=== PATIENT | female | born 1980 | race Caucasian/White ===

== ENCOUNTER 2019-08-08 19:43 | Emergency (ER) | payer OTHER ==
[2019-08-08 22:43] LABS: Hematocrit 36 % (35-47); Hemoglobin 11.7 g/dL (12.0-16.0); Mean Corpuscular HGB Conc 32 g/dL (31-36); Mean Corpuscular Hemoglobin 24 pg (27-31); Mean Corpuscular Volume 76 fL (80-97); Mean Platelet Volume 7.3 fL (7.4-10.4); Platelet Count 379 10^3/uL (150-450); Red Cell Distribution Width 18 % (10-15); White Blood Count 10.9 10^3/uL (3.5-10.8)
[2019-08-08 22:53] LABS: ABS Eosinophils 0.2 10^3/ul (0-0.6); ABS Lymphocytes 2.9 10^3/ul (1.0-4.8); ABS Monocytes 0.8 10^3/ul (0-0.8); Eosinophil % 2.2 %; Lymphocyte % 26.4 %
[2019-08-08 23:03] LABS: Albumin 3.9 g/dL (3.2-5.2); Albumin/Globulin Ratio 1.1 (1-3); BUN/Creatinine Ratio 12.9 (8-20); EGFR African American 111.6 (>60); EGFR Non-African American 92.2 (>60); Globulin 3.6 g/dL (2-4); Potassium 3.7 mmol/L (3.5-5.0); Total Bilirubin 0.3 mg/dL (0.2-1.0); Total Protein 7.5 g/dL (6.4-8.9)
[2019-08-09] MEDS ORDERED: predniSONE TAB* 20 MG PO ONE (01:20)
[2019-08-09 01:41] VITALS: BP 167/95
--- NOTE | 2019-08-09 01:41 | ED ---
Respiratory - HPI Summary HPI Summary: This pt is a 39 Y/O F presenting to [facility] with a CC of a productive cough with occasional bloody sputum for 3-4 weeks and upper back pain that is rated an 8/ 10 in severity. The sputum is usually white but does have a pink-tinge sometimes. She states that she has been wheezing and has posttusive emesis. She takes an albuterol inhaler for asthma but states that it has done little to alleviate her symptoms. She currently takes no other asthma medications. She denies any fever or decreased appetite. She states no aggravating factors. She has a PMHx of asthma and was a former smoker. - History of Current Complaint Chief Complaint: EDUpperRespComplaint Stated Complaint: COUGH/PACK PAIN PER PT Time Seen by Provider: 08/09/19 01:10 Hx Obtained From: Patient Onset/Duration: Sudden Onset, Lasting Weeks - 3-4 Timing: Constant Initial Severity: Severe Current Severity: Severe Pain Intensity: 8 Character: Wheezing, Cough (Productive) Sputum Amount: Small Sputum Color: White, Menan-Tinged Aggravating Factor(s): Nothing Alleviating Factor(s): Nothing Associated Signs and Symptoms: Negative - fever, decreased appetite, SOB, Wheezing - Allergy/Home Medications Allergies/Adverse Reactions: Allergies Allergy/AdvReac Type Severity Reaction Status Date / Time Penicillins Allergy Unknown Verified 08/08/19 19:51 Reaction Details PMH/Surg Hx/FS Hx/Imm Hx Previously Healthy: Yes Endocrine/Hematology History: Denies: Hx Diabetes Cardiovascular History: Reports: Other Cardiovascular Problems/Disorders - "HEART MURMUR". Respiratory History: Reports: Hx Asthma, Hx Pneumonia Sensory History: Denies: Hx Legally Blind, Hx Deafness Opthamlomology History: Denies: Hx Legally Blind Neurological History: Reports: Hx Migraine - Cancer History Hx Chemotherapy: No Hx Radiation Therapy: No - Surgical History Surgical History: Yes Surgery Procedure, Year, and Place: tubal - Immunization History Immunizations Up to Date: Yes Infectious Disease History: No Infectious Disease History: Denies: Traveled Outside the [place] in Last 30 Days - Family History Known Family History: Negative: Hypertension, Diabetes - Social History Occupation: Employed Full-time Lives: Alone Alcohol Use: None Hx Substance Use: No Substance Use Type: Reports: None Hx Tobacco Use: Yes Smoking Status (MU): Former Smoker Review of Systems Negative: Fever Positive: Shortness Of Breath, Cough - productive, occasional bloody sputum Positive: Vomiting - due to cough Positive: Other - upper back pain All Other Systems Reviewed And Are Negative: Yes Physical Exam - Summary Physical Exam Summary: Appearance: Well-appearing, Well-nourished, lying in bed comfortably Skin: Warm, dry, no obvious rash Eyes: sclera anicteric, no conjunctival pallor ENT: mucous membranes moist, pharynx appears normal Neck: Supple, nontender Respiratory: Diffuse end expiratory wheezing with preserved aeration, no signs of respiratory distress Cardiovascular: Normal S1, S2. No murmurs. Normal distal pulses in tibial and radial bilaterally. Abdomen: Soft, nontender, normal active bowel sounds present Musculoskeletal: Normal, Strength/ROM Intact Neurological: A&Ox3, awake and alert, mentation is normal, speech is fluent and appropriate Psychiatric: affect is normal, does not appear anxious or depressed Triage Information Reviewed: Yes Vital Signs On Initial Exam: Initial Vitals Temp Pulse Resp BP Pulse Ox 99.1 F 96 16 125/96 98 08/08/19 19:45 08/08/19 19:45 08/08/19 19:45 08/08/19 19:45 08/08/19 19:45 Vital Signs Reviewed: Yes Procedures - Sedation Patient Received Moderate/Deep Sedation with Procedure: No Diagnostics - Vital Signs Vital Signs Temp Pulse Resp BP Pulse Ox 08/08/19 22:15 98.4 F 78 16 138/98 98 08/08/19 19:45 99.1 F 96 16 125/96 98 - Laboratory Lab Results: Lab Results 08/08/19 08/08/19 08/08/19 Range/Units 22:33 22:33 22:33 WBC 10.9 H (3.5-10.8) 10^3/uL RBC 4.80 (3.70-4.87) 10^6 /uL Hgb 11.7 L (12.0-16.0) g/dL Hct 36 (35-47) % MCV 76 L (80-97) fL MCH 24 L (27-31) pg MCHC 32 (31-36) g/dL RDW 18 H (10-15) % Plt Count 379 (150-450) 10^3/uL MPV 7.3 L (7.4-10.4) fL Neut % (Auto) 63.9 % Lymph % (Auto) 26.4 % Bee % (Auto) 7.2 % Eos % (Auto) 2.2 % Baso % (Auto) 0.3 % Absolute Neuts (auto) 7.0 (1.5-7.7) 10^3/ul Absolute Lymphs (auto) 2.9 (1.0-4.8) 10^3/ul Absolute Monos (auto) 0.8 (0-0.8) 10^3/ul Absolute Eos (auto) 0.2 (0-0.6) 10^3/ul Absolute Basos (auto) 0.0 (0-0.2) 10^3/ul Absolute Nucleated RBC 0.0 10^3/ul Neutrophils % 65.0 % Lymphocytes % 27.0 % Reactive Lymphs % 3.0 (0-6) % Monocytes % 4.0 % Eosinophils % 1.0 % Nucleated RBC % 0.0 Normal RBC Morphology Not Reportable Hypochromasia 1+ Anisocytosis 1+ Hem Pathologist Commnt Pending Sodium 137 (135-145) mmol/L Potassium 3.7 (3.5-5.0) mmol/L Chloride 105 (101-111) mmol/L Carbon Dioxide 26 (22-32) mmol/L Anion Gap 6 (2-11) mmol/L BUN 9 (6-24) mg/dL Creatinine 0.70 (0.51-0.95) mg/dL Est GFR ( Amer) 111.6 (>60) Est GFR (Non-Af Amer) 92.2 (>60) BUN/Creatinine Ratio 12.9 (8-20) Glucose 92 (70-100) mg/dL Lactic Acid 0.8 (0.5-2.0) mmol/L Calcium 9.0 (8.6-10.3) mg/dL Total Bilirubin 0.30 (0.2-1.0) mg/dL AST 21 (13-39) U/L ALT 28 (7-52) U/L Alkaline Phosphatase 99 (34-104) U/L Troponin I 0.00 (<0.03) ng/mL Total Protein 7.5 (6.4-8.9) g/dL Albumin 3.9 (3.2-5.2) g/dL Globulin 3.6 (2-4) g/dL Albumin/Globulin Ratio 1.1 (1-3) Result Diagrams: 08/08/19 22:33 08/08/19 22:33 Lab Statement: Any lab studies that have been ordered have been reviewed, and results considered in the medical decision making process. Disposition - Course Course Of Treatment: This pt is a 39 Y/O F presenting to [facility] with a CC of a productive cough with occasional bloody sputum for 3-4 weeks and upper back pain that is rated an 8/10 in severity. She states that she has been wheezing and has posttusive emesis. She takes an albuterol inhaler for asthma but states that it has done little to alleviate her symptoms. Her PE found that she has Diffuse end expiratory wheezing with preserved aeration. She has abnormalities in her WBC, Hgb, MCV, MCH. Her CXR showed no acute processes. She will be discharged home with a Dx of bronchitis and asthma. - Diagnoses Provider Diagnoses: Bronchitis, Asthma Discharge ED - Sign-Out/Discharge Documenting (check all that apply): Patient Departure - discharge - Discharge Plan Condition: Good Disposition: HOME Prescriptions: Beclomethasone 80 MCG MDI(NF) [Qvar 80 MCG MDI(NF)] 2 puff INH BID #1 mdi Hydrocodone/Chlorphen P-Stirex [Hydrocodone-Chlorphen ER Susp] 5 ml PO BID #60 ml MDD 10 ml predniSONE [Prednisone 20 MG TAB] 40 mg PO DAILY 5 Days #10 tablet Patient Education Materials: Asthma (ED) Referrals: Yehuda Simmons MD [Primary Care Provider] - - Billing Disposition and Condition Condition: GOOD Disposition: Home - Attestation Statements Document Initiated by Skyler: Yes Documenting Scribe: Mitchel Castano Provider For Whom Skyler is Documenting (Include Credential): Emir Elliott MD Scribe Attestation: Mitchel Howard scribed for Emir Elliott MD on 08/09/19 at 1925. Scribe Documentation Reviewed: Yes Provider Attestation: The documentation as recorded by the Mitchel ryan accurately reflects the service I personally performed and the decisions made by me, Emir Elliott MD Status of Scribe Document: Viewed
== END 2019-08-09 01:39 | disposition home or self-care (01) ==
LOC: ED 19:43
DX: J40 Bronchitis, not specified as acute or chronic (principal); Z87.891 Personal history of nicotine dependence; Z88.0 Allergy status to penicillin
CPT/HCPCS: 36415; 71046; 80053; 83605; 84484; 85025; 85060; 99282; J7512